=== PATIENT | female | born 1980 | race Hispanic/Latino ===

== ENCOUNTER 2017-09-02 17:02 | Inpatient (IN) | payer OTHER, SELFPAY ==
[2017-09-02 17:56] LABS: #Eosinphils 0.1 thou/uL (0.0-0.7); #Lymphocytes 2.3 thou/uL (1.20-3.40); #Monocytes 0.4 thou/uL (0.11-0.59); #Neutrophils 4.6 thou/uL (1.40-6.50); %Basophils 0.6 % (0.0-1.0); %Eosinophils 1.6 % (0.0-10.0); %Lymphocytes 30.6 % (21.0-51.0); %Neutrophils 62.2 % (42.0-75.0); Hemoglobin 7.4 g/dL (12.0-16.0); Mean Corpuscular HGB CONC 28.4 g/dL (32.0-36.0); Mean Corpuscular Hemoglobin 15.5 pg (27.0-31.0); Mean Corpuscular Volume 54.6 fl (81.0-99.0); Mean Platelet Volume 5.7 fL (7.4-10.4); Platelet Count 456 thou/uL (130-400); RBC Distribution Width 17.2 % (11.5-14.5); Red Blood Cell (RBC) Count 4.78 mill/uL (4.20-5.40); White Blood Cell (WBC) Count 7.4 thou/uL (4.8-10.8)
[2017-09-02 18:02] LABS: Bilirubin Negative (Negative); Blood, Urine Moderate (Negative); Clarity CLEAR (Clear); Glucose, Urine (Dipstick) Negative (Negative); Leukocyte Small (Negative); Nitrite Negative (Negative); Protein, Urine (Dipstick) Trace mg/dL (Neg-Trace); Specific Gravity, Urine 1.029 (1.002-1.036)
[2017-09-02 18:04] LABS: Bacteria/HPF None Seen HPF (None Seen); Hyaline Casts/LPF 4-6 HYALINE CAST LPF (0-3 Hyaline); Pathc Cast-AUWi Flag 0.43 (0-2.49)
[2017-09-02 18:04] LABS: BHCG - Serum Negative (NEGATIVE); Pregs Control Background? CLEAR/WHITE (CLR/WHITE); Pregs Control Bar Appear? YES (CONTROL BAR)
[2017-09-02 18:16] LABS: ALT (SGPT) 11 U/L (8-55); AST (SGOT) 9 U/L (5-34); Albumin 4.7 g/dL (3.5-5.0); Alkaline Phosphatase 70 U/L (40-150); Anion Gap 12 mmol/L (10-20); BUN (Urea Nitrogen) 15 mg/dL (7.0-18.7); Bilirubin, Total 0.2 mg/dL (0.2-1.2); Calc. Creatinine Clearance 0 mL/min (70-130); Calcium 9.2 mg/dL (7.8-10.44); Carbon Dioxide 21 mmol/L (22-29); Chloride 109 mmol/L (98-107); Estimated GFR-MDRD Greater than 90; Globulin 3.1 g/dL (2.4-3.5); Glucose 102 mg/dL (70-105); Potassium 3.4 mmol/L (3.5-5.1); Protein, Total 7.8 g/dL (6.0-8.3); Sodium 139 mmol/L (136-145)
[2017-09-02 18:20] LABS: CKMB 0.4 ng/mL (0-6.6); Troponin I Less than 0.010 ng/mL (< 0.028)
[2017-09-02 18:22] LABS: Anisocytosis SLIGHT = 6-15 cells (100X) (0-5/hpf); Elliptocytes SLIGHT = 2-5 cells (100X) (0-1/hpf); Hypochromia MODERATE=16-30 cells (100X) (0-5/hpf); MDiff Complete? YES; Microcytosis MODERATE=15-30 cells (100X) (0-5/hpf); Ovalocytes SLIGHT = 2-5 cells (100X) (0-1/hpf); PLT Morphology Comment Appears Increased; Poikilocytosis SLIGHT = 6-15 cells (100X) (0-5/hpf); Polychromasia SLIGHT = 2-3 cells (100X) (0-2/hpf); Reflex for Review?? YES; Schistocytes SLIGHT = 2-5 cells (100X) (0-1/hpf); Target Cells SLIGHT = 2-5 cells (100X) (0-1/hpf); Tear Drops SLIGHT = 2-5 cells (100X) (0-1/hpf)
[2017-09-02] MEDS ORDERED: Morphine 4 MG/ML VIAL ONE (18:23)
--- NOTE | 2017-09-02 18:43 | ULT ---
PELVIC ULTRASOUND: 09/02/17 HISTORY: Anemia. COMPARISON: None. TECHNIQUE: Transabdominal and endovaginal imaging of the pelvis is performed. ovaries are interrogated with medel scale, color flow and doppler imaging with spectral waveform analysis. FINDINGS: There is a retroverted uterus, measuring 12.4 x 5.9 x 7.3 cm. There is no evidence of a myometrial ma ss. Endometrial diameter is 0.9 cm. There is fluid within the endometrium. Left ovary has a normal echotexture, measuring 3.5 x 1.7 x 1.6 cm. Right ovary has a normal echotexture measuring 1.9 x 1.8 x 2.4 cm. Follicle measuring 1.0 cm is noted . Limited evaluation of the adnexal structures due to bowel gas. No obvious free fluid. OVARIAN DOPPLER: There is vascular flow to both ovaries. IMPRESSION: Retroverted uterus with hypoechoic echotexture within the endometrium, likely representing fluid. No evidence of myometrial masses. Consider pelvic MRI. POS: JACKIE
[2017-09-02] MEDS ORDERED: Ondansetron ODT 4 MG TAB ONE (19:29)
[2017-09-02] MEDS ORDERED: Pantoprazole 40 MG VIAL ONE (19:41)
[2017-09-02 22:17] VITALS: BMI 33.5
[2017-09-03] MEDS ORDERED: Ondansetron HCl/PF 4 MG/2 ML Vial IVP PRN (03:06)
[2017-09-03] MEDS ORDERED: traMADol HCl 50 MG TAB PO PRN (03:06)
[2017-09-03] MEDS ORDERED: Mag-Al 1200 mg/1200 mg/30 ML UDCUP PO PRN (03:06)
--- NOTE | 2017-09-03 03:40 | HP ---
PRIMARY CARE PHYSICIAN: Through the [facility]. CHIEF COMPLAINT: Feeling bad. HISTORY OF PRESENT ILLNESS: Ms. 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 She says she was told that it was due to uterine fibroids. She says that this was diagn osed a couple of years ago. She has been on Depo-Provera shots for this, but she says that she does intermittently bleed, usually about 3 or 4 days prior to the time leading up to the next scheduled ot. She has also had to have blood transfusions in the past and it was attributed to heavy menstrual periods. She has not had a cycle she says since June, however, but began starting to feel weak and also dizzy and having a headache off and on. She also was feeling like her hands felt numb and h aving pain all over her body. As a result, she called for an appointment at the [facility] a nd she says they had already known that her blood count was low. It is unclear when this particular lab work was done or when any previous lab work had been done, but she was told that her hemoglobin w as low and that she should go to the ER. In the ER, it was found that her hemoglobin was 7.4 and she is being admitted for further evaluation. She also complains of having some chest pain and feeling short of breath and having some nausea and vomiting off and on and she also says that a couple of wee ks ago she had some cold-like symptoms. The patient denies any dark stools or melena. She also says that she was told that she needs a hysterectomy, but she says that she had not been able to raise th e money in order to have the procedure done. REVIEW OF SYSTEMS: Constitutional: No fevers, no chills, no night sweats, no weight loss. HEENT: She complains of headache, feeling dizzy and lightheaded, but no sore throat, no rhinorrhea, no neck pain, no adenopathy. Pulmonary: No hemoptysis, no cough, no wheezing. Cardiovascular: She complai ns of some chest pain and also feeling short of breath, no PND, no orthopnea. Gastrointestinal: The re is no abdominal pain. She has had some nausea and vomiting, no hematemesis, no melena. Musculosk eletal: She says she hurts all over, has feelings of numbness in her hands. Skin and integument: N o skin changes. No rash. Psychiatric: No symptoms of anxiety or depression. PAST MEDICAL HISTORY: Significant for uterine fibroids and anemia. PAST SURGICAL HISTORY: She has had a . ALLERGIES: No known drug allergies. SOCIAL HISTORY: She is a nonsmoker, nondrinker. She is single. She has 3 children. FAMILY HISTORY: Significant for mother who had lymphoma. MEDICATIONS: Include Depo-Provera injections. PHYSICAL EXAMINATION: GENERAL: She is alert and oriented. She appears to be in no acute distress. VITAL SIGNS: Her blood pressure was 99/67, heart rate 70, respiratory rate of 16, temperature is 98. 6. HEENT: Pupils are equal, round, and reactive. Extraocular muscles are intact. Her sclerae are anic teric. Throat, no erythema, no exudates. NECK: No adenopathy, no bruits. LUNGS: Clear to auscultation. There is no wheezing, no rales. CARDIOVASCULAR: She has a normal S1 and S2. There was no S3 or S4. No murmurs, clicks, or rubs. ABDOMEN: Obese. It is soft. It is nontender, nondistended. There is no rebound or guarding, no or ganomegaly. EXTREMITIES: There is no clubbing, cyanosis, no edema. NEUROLOGIC: The exam is nonfocal. LABORATORY AND X-RAY FINDINGS: White blood cell count 7.4, hemoglobin 7.4, hematocrit is 26.1, plate let count is 456. Sodium 139, potassium 3.4, chloride is 109, CO2 is 21, BUN of 15, creatinine 0.62, glucose is 102. Urinalysis was significant for moderate blood, 11 to 20 white blood cells. She had a transvaginal ultrasound in the ER showing a retroverted uterus and there was some hypoechoic echot exture within the endometrium. ASSESSMENT AND PLAN: This is a 37-year-old female that presents to the ER with a microcytic hypochro tammi anemia. In her age group, it is likely related to menorrhagia. However, it is unclear when her last hemoglobin was performed and whether or not there has been a significant change in the last few months since she says that she has not had a cycle since June. Also, her gastrointestinal losses a possibility; however, her stool guaiac is negative and we will also not certain that her anemia is iron deficiency as there are other forms of hypochromic microcytic anemias i.e., such as thalassemia , etc. Therefore, we will check iron studies to in fact document whether or not this is iron deficie ncy anemia. Her hemoglobin is actually above the level, which we would normally transfuse and I expl ained this to the patient through her daughter who is acting as brushing machine operator and offered an IV iron inf usion if her iron level was in fact low. She, however, would prefer to get a blood transfusion and s linda she is "symptomatic" from this, we will go ahead and transfuse a unit. She is also insistent on having an evaluation for hysterectomy, even though it appears as if the Depo shots are controlling h er bleeding since this has been an ongoing problem and it appears as if she has not sought care from a specialist, we will ask the [facility] Hospitalist to come and evaluate the patient with regards to the abnormal uterine bleeding.
[2017-09-03] MEDS: Acetaminophen 325 MG TAB PO PRN ×2 (04:26→12:59)
[2017-09-03 04:27] LABS: Iron 9 ug/dL (50-170); Iron Binding Capacity, Total 336 mcg/dL (265-497)
[2017-09-03] MEDS ORDERED: Docusate 100 MG CAP PO SCH (09:00)
--- NOTE | 2017-09-03 11:07 | CON ---
DATE OF CONSULTATION: 09/03/2017 REQUESTING PROVIDER: Jona Colbert M.D. with [facility]. REASON FOR EVALUATION: Anemia and a history of abnormal uterine bleeding on Depo-Provera. TIME OF EVALUATION: Patient was seen on in the procedure room where our consult occurred from 09:50-10:10. PROCEDURE PERFORMED: Endometrial biopsy. HISTORY OF PRESENT ILLNESS: In brief, this is a 37-year-old female, 3, para 3 with 3 previous C-sections in the past, who has been on Depo-Provera since 02/2016 for history of abnormal bleeding, who presents to the ER with an initial complaint, according to the patient and Dr. Colbert' s history and physical, with feeling that her hand felt numb. She denied syncope or dizziness or cyn rtness of breath. In the ER, it was found that she had a hemoglobin of 7.4, and so she was admitted to Medicine for evaluation. Evaluation was done by the ER and admitted to Internal Medicine for furt her evaluation. Full review of systems was performed on admission and I have reviewed them in the hi story and physical by Dr. Colbert. PAST MEDICAL HISTORY: Significant for a blood transfusion in the past in 2011 when she was told that she could have had uterine fibroids. GYNECOLOGIC HISTORY: Again significant for Depo-Provera, which began in 2015 and her last Depo-Prove ra was in 07/2017. She had an episode of vaginal bleeding in 02/2017 and then 06/2017. She has pass ed small clots in the past, but is not having any bleeding now since June. PAST SURGICAL HISTORY: x3. MEDICATIONS: None. SOCIAL HISTORY: She is a nonsmoker and a nondrinker. She is single and has 3 children. PHYSICAL EXAMINATION: VITAL SIGNS: Vitals are stable and she is afebrile. GENERAL: She was in no acute distress. when I saw her. She was alert and oriented without evidence of pallor. When I evaluated the patient on vaginal inspection, there was no vaginal bleeding or evid ence of vaginal bleeding. The cervix appeared grossly normal. I discussed with the patient an endom etrial biopsy, as the ultrasound, which was performed, showed no gross abnormalities, but some hypoec hoic structure/fluid in the endometrial cavity. The patient signed informed consent for the endometr ial biopsy and we proceeded. Endometrial biopsy. A Graves bivalve speculum was placed into the vagina. Dr. Forest Olson helped wi th this procedure (president and cmo). We copiously prepped the external cervical opening/os with Betadine. Three passes by EMB Pipelle was done without need for cervical dilation. The cervix was patent. The patient tolerated the procedure very well. Mucus-type material was removed from the uterine cavity and put into formalin jar. Tissue was removed as well and this was put into the same jar. Three passes were used with tissue verified. This was explained once again to the patient. 1. Once again, there was no evidence of vaginal bleeding before or after the biopsy. 2. A single-tooth tenaculum was not needed as the cervix was midline and parous and open. 3. On laboratory assessment initial hemoglobin was 7.4 with a hematocrit of 26. Ferritin was less t serrato 2. Iron was 9, which is low. AST and ALT were normal. CK-MB was 0.4 (this was done initially, because the patient complained of some chest discomfort) 4. On ultrasound, the patient had a pelvic ultrasound performed with the report in the EMR. No uter ine masses were noted. The endometrial diameter was 0.9 cm. There was some hypoechoic echotexture w ithin the endometrium. Ovaries appeared normal. There was no gross evidence of uterine fibroids. 5. Interventions given, she has received 1 unit of packed red blood cells per Internal Medicine. ASSESSMENT: This is a patient, who is a 37-year-old multigravida, with known abnormal bleeding, who has been on Depo-Provera for about 2 years, having Depo-associated vaginal bleeding. The endometrium was hypoechoic on ultrasound, so I performed an endometrial biopsy. PLAN: 1. No acute needs at this time, as she is not bleeding nor has she bled in over a month. 2. Although the patient has her gynecology provider at [facility], I recommend follow up at [facility] [place] in case definitive surgical management is necessary. 3. No evidence of anemic complication at this time. 4. I have ordered a tissue request for the endometrial biopsy, and we will check the results as an o utpatient. 5. No specific medications at this time.
[2017-09-03 11:50] VITALS: BP 115/77; TEMP 98.2
[2017-09-03 15:53] LABS: Hemoglobin 8.5 g/dL (12.0-16.0); Mean Corpuscular HGB CONC 30.2 g/dL (32.0-36.0); Mean Corpuscular Hemoglobin 17.5 pg (27.0-31.0); Mean Corpuscular Volume 58.1 fl (81.0-99.0); Mean Platelet Volume 5.2 fL (7.4-10.4); Platelet Count 418 thou/uL (130-400); RBC Distribution Width 24.5 % (11.5-14.5); Red Blood Cell (RBC) Count 4.86 mill/uL (4.20-5.40); White Blood Cell (WBC) Count 6.9 thou/uL (4.8-10.8)
[2017-09-05 12:18] LABS: A/G Ratio 1.2 (0.7-1.7); Albumin 3.3 g/dL (2.9-4.4); Alpha 1 0.2 g/dL (0.0-0.4); Alpha 2 0.7 g/dL (0.4-1.0); Beta 0.9 g/dL (0.7-1.3); Globulin, Total 2.7 g/dL (2.2-3.9); M-Spike Not Observed g/dL (Not Observed)
== END 2017-09-03 16:41 | disposition home or self-care (01) | DRG 812 ==
LOC: ERS 17:02 → T4-B 20:45
PROVIDERS: ADMIT Family Medicine; ATTEND Family Medicine
PROC: 30233N1 Transfusion of Nonautologous Red Blood Cells into Peripheral Vein, Percutaneous Approach (ICD-10-PCS; principal; 2017-09-03)
DX: D50.0 Iron deficiency anemia secondary to blood loss (chronic) (principal); N92.0 Excessive and frequent menstruation with regular cycle
CPT/HCPCS: 36415; 36430; 76856; 80053; 81003; 81015; 82274; 82553; 82728; 83540; 83550; 84165; 84484; 84703; 85025; 85027; 85060; 86850; 86900; 86901; 87086; 88305; 93005; 96361; 96374; 96375; C9113; J0696; J2270; P9016; Q0162

== ENCOUNTER 2017-11-05 09:00 | Outpatient (CLI) | payer OTHER ==
[2017-11-05 16:08] LABS: Mean Corpuscular HGB CONC 29.2 g/dL (32.0-36.0); Mean Corpuscular Hemoglobin 17.5 pg (27.0-31.0); Mean Corpuscular Volume 59.9 fL (78.0-98.0); Mean Platelet Volume 5.3 fL (7.4-10.4); Platelet Count 314 thou/uL (130-400); RBC Distribution Width 19.6 % (11.5-14.5); Red Blood Cell (RBC) Count 5.13 mill/uL (4.20-5.40); White Blood Cell (WBC) Count 6.8 thou/uL (4.8-10.8)
== END 2017-11-05 09:01 | disposition home or self-care (01) ==
LOC: LABBT 09:00
PROVIDERS: ATTEND Obstetrics & Gynecology
DX: Z01.812 Encounter for preprocedural laboratory examination (principal); D64.9 Anemia, unspecified; R10.2 Pelvic and perineal pain
CPT/HCPCS: 85027; 86850; 86900; 86901

== ENCOUNTER 2017-11-05 14:30 | Inpatient (IN) | payer OTHER ==
--- NOTE | 2017-11-05 15:26 | HP ---
DATE OF PLANNED PROCEDURE: 11/10/2016 PREOPERATIVE DIAGNOSES: Menorrhagia, dysmenorrhea, history of anemia, previous sections. PROCEDURE TO BE PERFORMED: Robotic assisted total laparoscopic hysterectomy with bilateral salpingec kain. HISTORY OF PRESENT ILLNESS: Ms. Yulia Parr is a 37-year-old with 3 previous sect ions who was originally referred to our office for evaluation and management of menorrhagia and pelvi c pain after being seen and evaluated in the ER by the OB Hospitalist for the above listed complaints . The patient has a long history of menorrhagia and has multiple transfusions in the past. Her robyn rrhagia was intermittently controlled over the last number of years with Depo-Provera, but more recen tly has not been well controlled. The patient now presents requiring definitive management. The pat ient had an ultrasound that showed an enlarged uterus with definitive fibroids noted and no adnexal m asses or other abnormalities. Uterus was moderately enlarged, approximately 12-13 cm on her ultrasou nd exam. She had an endometrial biopsy that there reported no hyperplasia or malignancy. REVIEW OF SYSTEMS: Negative except per HPI. PAST MEDICAL HISTORY: None. ALLERGIES: None. PAST SURGICAL HISTORY: Three sections. GYNECOLOGIC HISTORY: No history of abnormal Pap smear. Pap smear on 09/25/2017 negative HPV. OBSTETRICAL HISTORY: Three previous sections, most recent in 2012. FAMILY HISTORY: Significant for lymphoma in her mother and hypercholesterolemia in her father. SOCIAL HISTORY: The patient never been a smoker. She does not use alcohol or drugs. PHYSICAL EXAMINATION: VITAL SIGNS: 5 feet 8 inches, weight 200 pounds, BMI 30.4, blood pressure 110/70, pulse 74. GENERAL: No acute distress. Alert and oriented. CARDIOVASCULAR: Regular rate and rhythm. LUNGS: Nonlabored breathing, clear to auscultation. ABDOMEN: Soft, nontender, no palpable masses, no hepatosplenomegaly. GENITOURINARY: Normal external female genitalia with exception of a candidal appearing rash in the l eft groin. Normal vaginal mucosa, normal appearing cervix, no cervical lesions, no cervical motion t enderness. Uterus moderately enlarged to approximately 12-week size. No adnexal masses or tendernes s noted. EXTREMITIES: Normal. SKIN: No rashes with exception of external genitalia findings. DIAGNOSTIC STUDIES: Endometrial biopsy on 09/03/2017, negative for endometritis, hyperplasia, atypia or malignancy noted in active phase endometrium. Ultrasound on 09/02/2017 with a retroverted uterus 12 x 5.9 x 7.3 cm with no myometrial masses and an endometrial diameter of 0.9 cm. Small amount of fluid within endometrium. Left and right ovaries were reported normal. Please see dictation for ful l details. ASSESSMENT AND PLAN: Ms. Yulia Parr is a 37-year-old G3, P3, with a long history of menorrhagia , dysmenorrhea, and anemia requiring blood transfusions with her symptoms, poorly controlled with med ical management now presenting desiring definitive management with hysterectomy. The patient is scheduled for robotic assisted total laparoscopic hysterectomy with bilateral salpinge ctomy. She understands the risks are to include, but not limited to bleeding, infection, damage to t he internal pelvic or abdominal organs, possible convergence to emergent laparotomy, inability to ful ly diagnose and treat all conditions at the time of surgery and possible need for future medical and/ or surgical management. The patient's questions have been answered to her satisfaction in Lithuanian. Her postoperative medication use has been discussed and the medications have been sent to the pharmac y.
[2017-11-05 15:40] VITALS: BMI 30.4
[2017-11-10] MEDS ORDERED: Famotidine/PF 20 mg/2ml Vial ONE (08:07)
[2017-11-10] MEDS ORDERED: Gabapentin 300 MG CAP ONE (08:07)
[2017-11-10] MEDS ORDERED: CeleCOXIB 100 MG CAP ONE (08:08)
[2017-11-10] MEDS ORDERED: CEFAZOLIN/Water 2 GM/20 ML SYRINGE ONE (08:08)
[2017-11-10 08:34] LABS: BHCG - Serum Negative (NEGATIVE); Pregs Control Background? CLEAR/WHITE (CLR/WHITE); Pregs Control Bar Appear? YES (CONTROL BAR)
[2017-11-10] MEDS ORDERED: Bupivacaine HCl 0.5%/Epinephrine 1:200,000/PF 30 ml Vial ONE (09:06)
[2017-11-10] MEDS ORDERED: Midazolam HCl 2 mg/2 ml Vial ONE (09:26)
[2017-11-10] MEDS ORDERED: Fentanyl 100 MCG/2 ML VIAL ONE ×2 (09:41→12:53)
[2017-11-10] MEDS ORDERED: HYDROmorphone 0.5 MG/0.5 ML SYRINGE ONE (09:42)
[2017-11-10] MEDS ORDERED: Ropivacaine 0.2% 550 ML 550 ML NERVE BLCK SCH (10:15)
[2017-11-10] MEDS ORDERED: Promethazine HCl 25 MG/ML VIAL IM PRN (12:27)
[2017-11-10] MEDS ORDERED: Ondansetron HCl/PF 4 MG/2 ML Vial IVP PRN (12:27)
[2017-11-10] MEDS ORDERED: Promethazine HCl 25 MG/ML VIAL SLOW IVP PRN (12:27)
--- NOTE | 2017-11-10 13:04 | OP ---
DATE OF PROCEDURE: 11/10/2017 PREOPERATIVE DIAGNOSIS: Menorrhagia and anemia. POSTOPERATIVE DIAGNOSIS: Menorrhagia and anemia. PROCEDURE PERFORMED: Robotic-assisted total laparoscopic hysterectomy with bilateral salpingectomy, lysis of adhesions, and placement of ON-Q pump. SURGEON: Wero Diaz D.O. CLEAN OUT DRILLER: Sara Newman D.O. COMPLICATIONS: None. ANESTHESIA: General endotracheal. ESTIMATED BLOOD LOSS: Less than 50 mL. URINE OUTPUT: 200 mL. FINDINGS: 1. Normal appearing vaginal mucosa and cervix, uterus sounds to 8 cm, omental adhesions adhered to t he midline abdominal wall. 2. Adhesions of the bladder to the uterine cervix. 3. Enlarged uterus, normal appearing tubes, normal appearing ovaries 4. Surgical sites hemostatic. PROCEDURE DETAILS: The patient was taken back to the OR with IV fluids running. Once she was in the OR, she was placed in dorsal supine position. Anesthesia was obtained. Once the patient was asleep , she was placed in low dorsal lithotomy position and the abdomen and vagina were prepped and draped in normal fashion for gynecologic surgery. A Cobian catheter tip was placed into the bladder and the bladder drained approximately 150 mL of urine. A Rebeca syringe was attached to the tip of the Cobian for bladder manipulation if needed during the case. An operative speculum was placed into the vagin a and the anterior lip of the cervix was visualized and grasped with a single tooth tenaculum and the uterus was sounded. The uterus sounded to approximately 8 cm. After the uterus was sounded the MiniBrake I Margot manipulator was assembled with a 4 cm cup and 8 cm tip was placed in the uterus and vagina in n ormal fashion for manipulation during the case. The operative speculum was removed as well as the te naculum and surgeon's gloves were changed and attention was turned to laparoscopic portion of the adam e. Beginning approximately 2 cm above the umbilicus, local anesthesia was placed underneath the skin . A 12 mm skin incision was made with the scalpel. The Veress needle was placed through this incisi on into the abdomen and the abdomen was insufflated without difficulty. After the abdomen was insuff lated the Veress needle was removed and 12 mm trocar was placed in through this incision and entered the abdominal peritoneal cavity without difficulty. A laparoscope was then placed through this troca r. The patient was placed in Trendelenburg position and the above findings were noted. Next the rig ht lower quadrant 8 mm port was placed. This was done by injecting the skin with local anesthesia, a n 8 mm incision with the scalpel and directing the 8 mm trocar under direct visualization. In simila r fashion, the left lower quadrant 8 mm port and the right upper quadrant 11 mm port were placed. On ce all 4 ports were placed, the robotic arms were docked to the patient at bedside and the instrument s were directed under direct visualization. Next, the surgeon moved to the operative console to begi n the hysterectomy portion of the procedure. Beginning on the patient's left side, the left fallopia n tube was grasped, elevated away from the pelvic sidewall, cauterized and excised. Once the fallopi an tube segment was completely removed, it was removed from the surgical field to be sent with the nal pathology. After the left fallopian tube was removed, the left utero-ovarian ligament was cauter ized and transected allowing the left ovary to fall away to the pelvic sidewall. The left round liga ment was then cauterized and transected. It was divided into anterior and posterior leaves down towa rds the level of the uterine artery. The bladder was noted to have minimal adhesions on the left karina e and the bladder flap was easily created from the left side to approximately midline to the cervix. With the bladder gently dissected away, the uterine artery was cauterized and transected. Next, att ention was turned to the contralateral side. In similar fashion, the right fallopian tube was identi fied, elevated away from the pelvic side wall cauterized and transected. It was removed for patholog ic review as well. The round ligament on the patient's right side was cauterized as well as the uter o-ovarian ligament. The utero-ovarian ligament was transected allowing the right ovary to fall away to the pelvic sidewall, the round ligament was dissected down and divided into anterior and posterior leafs. It was taken down to the level of the uterine artery which was then cauterized and transecte d. More dense adhesions were noted on the right side of the cervix to the bladder. The bladder was then backfilled and the bladder flap dissection was completed with the bladder distended to demarcate the bladders anatomy from the uterus and cervix. With the bladder flap created, the bladder was renae ined again and the bladder was dissected off the cervix and planned colpotomy site layer by layer. O nce this portion of the procedure was completed, the colpotomy was performed circumferentially using monopolar scissors. After the colpotomy was completed, the uterine and cervix specimen was retracted into the vagina where it stayed for the remainder of the case to keep in pneumoperitoneum. The surg ical pedicles and vaginal cuff were copiously irrigated and no areas of bleeding were noted. The vag inal cuff was then closed in 2 layers with a running suture of Stratafix. Once the vaginal cuff clos ed, was irrigated and suctioned dry and again the pressure was dropped down to 4 mmHg. A layer of Ti sseel was applied over the dissection areas of the vaginal cuff, bladder flap and adnexal dissections . An ON-Q catheter tip was placed under direct visualization through the skin and subcutaneous tissu e. The catheter was laid down into the pelvis and was primed. The catheter sheath was removed. The trocars were removed and the gas was released from the abdomen. After the ports were removed and th e abdomen was cleaned and dried the supraumbilical fascial layer was closed with Vicryl suture. All 4 skin incisions were closed with Monocryl suture and dressed with Dermabond dressing. The vagina wa s inspected with no lacerations noted and a hemostatic vaginal cuff noted. The patient was then michael hobson, dried, taken out of lithotomy position. She was extubated, and transferred to the recovery room in good condition.
[2017-11-10] MEDS ORDERED: Ibuprofen 800 MG TAB PO SCH (14:00)
[2017-11-10] MEDS ORDERED: Acetaminophen/Codeine 30-300mg Tablet PO PRN (14:38)
[2017-11-10] MEDS ORDERED: diphenhydrAMINE 25 MG CAP PO PRN (14:38)
[2017-11-10] MEDS ORDERED: Simethicone Chewable 80 MG TAB PO PRN (14:38)
[2017-11-10] MEDS ORDERED: Bisacodyl 10 MG SUPP PR PRN (14:38)
[2017-11-10] MEDS ORDERED: Meperidine HCl/PF 25 MG/ML VIAL SLOW IVP PRN (14:38)
[2017-11-10] MEDS ORDERED: Zolpidem Tartrate 5 MG TAB PO PRN (14:38)
[2017-11-10] MEDS ORDERED: Glycopyrrolate 0.2 MG/ML 5 ML SYRINGE ONE (14:50)
[2017-11-10] MEDS ORDERED: Ketorolac Tromethamine 30 MG/ML VIAL ONE (14:50)
[2017-11-10] MEDS ORDERED: Lidocaine 1% PF 5 ML VIAL ONE (14:50)
[2017-11-10] MEDS ORDERED: Dexamethasone 20 MG/5 ML VIAL ONE (14:50)
[2017-11-10] MEDS ORDERED: PROPOFOL 200 MG/20 ML VIAL ONE (14:50)
[2017-11-10] MEDS ORDERED: Metoclopramide HCl 10 MG/2 ML VIAL ONE (14:50)
[2017-11-10] MEDS ORDERED: Ondansetron HCl/PF 4 MG/2 ML Vial ONE (14:50)
[2017-11-10] MEDS ORDERED: Ketorolac Tromethamine 30 MG/ML VIAL IVP SCH (15:00)
[2017-11-10] MEDS: Sodium Chloride 0.9% 1,000 ML IV SCH ×3 (15:08→23:39)
[2017-11-10] MEDS: Ondansetron HCl/PF 4 MG/2 ML Vial IVP PRN (15:37)
[2017-11-10] MEDS: Ketorolac Tromethamine 30 MG/ML VIAL IVP SCH (18:10)
[2017-11-11] MEDS: Ketorolac Tromethamine 30 MG/ML VIAL IVP SCH ×3 (00:16→11:27)
[2017-11-11] MEDS: Acetaminophen/Codeine 30-300mg Tablet PO PRN ×2 (03:08→17:02)
[2017-11-11 05:33] LABS: Hemoglobin 7.1 g/dL (12.0-16.0); Mean Corpuscular Hemoglobin 17.5 pg (27.0-31.0); Mean Corpuscular Volume 58.4 fL (78.0-98.0); Mean Platelet Volume 5.1 fL (7.4-10.4); Platelet Count 333 thou/uL (130-400); RBC Distribution Width 17.7 % (11.5-14.5); Red Blood Cell (RBC) Count 4.07 mill/uL (4.20-5.40); White Blood Cell (WBC) Count 7.6 thou/uL (4.8-10.8)
[2017-11-11] MEDS: Sodium Chloride 0.9% 1,000 ML IV SCH (07:10)
--- NOTE | 2017-11-11 08:09 | PDOC.EVN ---
Event Note - Event Note Event Note: POD1 S: lizeth clear diet, has not tried regular diet yet, no N/V,pain controlled, voiding well O: VS WNL Gen: NAD A and O Abd: soft, NTTP, inc CDI x 4 Ariadne: dry Ext: no cords Laboratory Results - last 24 hr 11/11/17 05:00 WBC 7.6 RBC 4.07 L Hgb 7.1 L Hct 23.8 L MCV 58.4 L MCH 17.5 L MCHC 30.0 L RDW 17.7 H Plt Count 333 MPV 5.1 L A/P: S/P RATLH BS with anemia prior to surgery w appropriate drop in HCT post op. Discussed symptoms of anemia with the pt in detail this AM. To ambulate in the halls and if any sx of anemia will transfusion 1UPRBC. Plan for DC later today.
[2017-11-11] MEDS: Ondansetron HCl/PF 4 MG/2 ML Vial IVP PRN (11:28)
[2017-11-11 11:54] VITALS: BP 122/73; TEMP 98.3
--- NOTE | 2017-11-13 00:28 | DIS ---
DATE OF ADMISSION: 11/10/2017 DATE OF DISCHARGE: 11/11/2017 ADMISSION DIAGNOSES: Menorrhagia, history of anemia. DISCHARGE DIAGNOSES: Menorrhagia, history of anemia, status post hysterectomy. HOSPITAL COURSE: Ms. Yulia Parr was admitted on 11/10/2017 for a planned robotic-assisted total laparoscopic hysterectomy with bilateral salpingectomy for history of menorrhagia, refractory to med ical management as well as anemia. The patient underwent the aforementioned procedure without compli cation. By postoperative day #1, she was ambulating, tolerating regular diet, had difficulty with mi nimal discomfort and her pain was controlled with an ON-Q ____. She was tolerating regular diet, pas sing gas, and denied any symptoms of anemia. On the day of discharge, her hemoglobin was 7.1. We di scussed the symptoms of anemia and indications for transfusion; however, she met her postoperative go als and reported no symptoms of anemia prior to discharge. The patient was discharged home with medi cations for pain to use as needed as well as instructions to continue her oral iron therapy. She has postop visits in my office for 2 and 6 weeks and has been given instructions for pelvic rest.
[2017-11-15] MEDS ORDERED: Ibuprofen 800 MG TAB PO SCH (22:00)
== END 2017-11-11 17:05 | disposition home or self-care (01) | DRG 743 ==
LOC: SURG A 11-10 07:50 → 3SE 11-10 14:30
PROVIDERS: ADMIT Obstetrics & Gynecology; ATTEND Obstetrics & Gynecology
PROC: 0UT94ZZ Resection of Uterus, Percutaneous Endoscopic Approach (ICD-10-PCS; principal; 2017-11-10)
PROC: 0UT74ZZ Resection of Bilateral Fallopian Tubes, Percutaneous Endoscopic Approach (ICD-10-PCS; 2017-11-10)
PROC: 0DNW4ZZ Release Peritoneum, Percutaneous Endoscopic Approach (ICD-10-PCS; 2017-11-10)
PROC: 0TNB4ZZ Release Bladder, Percutaneous Endoscopic Approach (ICD-10-PCS; 2017-11-10)
PROC: 8E0W4CZ Robotic Assisted Procedure of Trunk Region, Percutaneous Endoscopic Approach (ICD-10-PCS; 2017-11-10)
DX: N92.0 Excessive and frequent menstruation with regular cycle (principal); D64.9 Anemia, unspecified; R10.2 Pelvic and perineal pain; N85.2 Hypertrophy of uterus; N73.6 Female pelvic peritoneal adhesions (postinfective); B96.89 Other specified bacterial agents as the cause of diseases classified elsewhere
CPT/HCPCS: 36415; 84703; 85027; 88307; A4216; A4306; J0131; J0670; J1100; J1170; J1885; J2001; J2250; J2405; J2704; J2765; J2795; J3010; S0028